=== PATIENT | male | born 1960 | race Caucasian/White ===

== ENCOUNTER 2024-01-17 13:22 | Emergency (ER) | payer MEDICARE, OTHER ==
[2024-01-17] MEDS ORDERED: Sodium Chloride 0.9% 10 ML Syringe FLUSH PRN (13:54)
[2024-01-17] MEDS: Lidocaine 2% Viscous Solution 15 ML UD PO ONE (14:12)
[2024-01-17] MEDS: Aluminum Hydroxide/Magnesium Hydroxide/Simethicone Susp 30 ML Cup PO ONE (14:12)
[2024-01-17] MEDS ORDERED: Iopamidol 612 MG/ML 100 ML Bottle IVPUSH STA (14:34)
[2024-01-17 14:50] LABS: CORONAVIRUS COVID-19 NAA NEGATIVE (NEGATIVE); INFLUENZA A NAA NEGATIVE (NEGATIVE); INFLUENZA B NAA NEGATIVE (NEGATIVE); RESPIRATORY SYNCYTIAL VIR NAA NEGATIVE (NEGATIVE)
[2024-01-17] MEDS: Iopamidol 612 MG/ML 100 ML Bottle IVPUSH ONE (15:19)
[2024-01-17] MEDS: Loperamide 2 MG Tab PO ONE (15:34)
[2024-01-17] MEDS: Pantoprazole 40 MG Tab.CR PO ONE (15:34)
[2024-01-17] MEDS: Ondansetron 4 MG Tab.DIS PO ONE (15:34)
[2024-01-17 16:02] LABS: APPEARANCE,URINE SLIGHTLY CLOUDY; BILIRUBIN,URINE NEGATIVE (NEGATIVE); COLOR,URINE YELLOW; GLUCOSE,URINE 500 mg/dL (NEGATIVE); KETONES,URINE NEGATIVE (NEGATIVE); LEUKOCYTE ESTERASE,URINE NEGATIVE (NEGATIVE); NITRITE,URINE NEGATIVE (NEGATIVE); OCCULT BLOOD,URINE NEGATIVE (NEGATIVE); PH,URINE 5.5 (5.0-9.0); PROTEIN,URINE NEGATIVE (NEGATIVE); UROBILINOGEN,URINE 0.2 E.U./dL (0.2-1.0)
== END 2024-01-17 18:00 | disposition home or self-care (01) ==
LOC: LL.ED 13:22
DX: R10.13 Epigastric pain (principal); R19.7 Diarrhea, unspecified; E78.00 Pure hypercholesterolemia, unspecified; K21.9 Gastro-esophageal reflux disease without esophagitis; Z79.899 Other long term (current) drug therapy; Z79.4 Long term (current) use of insulin; Z79.84 Long term (current) use of oral hypoglycemic drugs
CPT/HCPCS: 0241U; 36415; 74177; 81003; 83605; 83735; 84484; 93005; 93010; 99284; A9270-GY; Q9967